=== PATIENT | female | born 1960 | race Caucasian/White ===

== ENCOUNTER 2017-04-20 10:24 | Inpatient (IN) | payer BC ==
[~2017-04-20] VITALS: Ht 154.9 cm; Wt 128.0 kg
[~2017-04-20 10:24] MED LIST: CLIMARA0.1 MG TP; DICYCLOMINE HCL20 MG PO; FLAGYL500 MG PO; FLUOXETINE HCL10 MG PO; FLUOXETINE HCL20 MG PO; NYQUIL D COLD295 ML PO; OMEPRAZOLE20 MG PO; OMEPRAZOLE40 M1 PO; ZOFRAN4 MG PO
[2017-04-20 11:10] LABS: BASE EXCESS -0.3 mEq/L (-3 to +3); BICARBONATE 22.1 mEq/L (22-26); CARBOXY HGB 1.3 % (0-5); COMMENTS - BLOOD GASES NAC+; DEVICE 980 PB; FI02 21 %; MODE SPONT NIV; PCO2 29 mm Hg (35-45); PO2 70 mm Hg (80-100); SITE RR; TOTAL RESP RATE 26 resp/min; pH 7.49 (7.35-7.45)
[2017-04-20 11:11] LABS: CONTINUOUS POS AIRWAY PRESSURE 5 cm H2O; PRES. SUPPORT 10 CM/H2O
[2017-04-20 12:39] LABS: BASOPHIL (%) 0.3 % (0-1); EOSINOPHIL (%) 0.2 % (0-5); HEMATOCRIT 39.6 % (36.0-46.0); HEMOGLOBIN 12.5 G/DL (11.9-15.5); IMMATURE GRANULOCYTE (%) 1.2 % (0.0-0.7); LYMPHOCYTE (%) 8.9 % (15-42); LYMPHOCYTE COUNT 0.6 K/uL (1.0-2.8); MCH 27.4 PG (29.0-34.0); MCHC 31.6 G/DL (30.0-36.0); MCV 86.7 FL (83-99); MONOCYTE (%) 3.5 % (3-12); MONOCYTE COUNT 0.2 K/uL (0-0.8); NEUTROPHIL (%) 85.9 % (45-76); NEUTROPHIL COUNT 5.7 K/uL (1.8-6.4); PLATELET COUNT 277 K/uL (156-360); RBC DIS.WIDTH-CV 14.7 % (11.8-14.6); RED BLOOD COUNT 4.57 M/uL (3.80-5.20); WHITE BLOOD COUNT 6.6 K/uL (4.1-10.2)
[2017-04-20 12:51] LABS: APPEARANCE CLEAR ((CLEAR)); BILIRUBIN NEGATIVE; BLOOD NEGATIVE; COLOR YELLOW ((YELLOW)); GLUCOSE (STRIP) NEGATIVE; KETONES 5; LEUKOCYTES NEGATIVE; NITRITE NEGATIVE; PROTEIN (STRIP) NEGATIVE; SPECIFIC GRAVITY 1.009 (1.000-1.030); UCUL ADDED? NO; UROBILINOGEN 0.2 MG/DL (0.2-1.0)
[2017-04-20 12:52] LABS: CHLORIDE 108 mEq/L (99-109); POTASSIUM 3.2 mEq/L (3.7-5.4); SODIUM 140 mEq/L (136-147)
[2017-04-20 12:54] LABS: GLUCOSE 165 mg/dL (70-99); TOTAL PROTEIN 6.9 g/dL (6.4-8.3)
[2017-04-20 12:56] LABS: TOTAL BILIRUBIN 0.4 mg/dL (0.0-1.0)
[2017-04-20 12:58] LABS: ALKALINE PHOSPHATASE 53 IU/L (3-129); CREATININE 0.9 mg/dL (0.6-1.3); GFR ESTIMATE (CALCULATED) > 59 mL/min/
[2017-04-20 12:59] LABS: AST (GOT) 13 IU/L (2-34); UREA NITROGEN (BUN) 10 mg/dL (9-23)
[2017-04-20 13:00] LABS: DIRECT BILIRUBIN 0.2 mg/dL (0.0-0.3); PTT 27.2 SEC (25-37); TROP-I INTERPRETATION NEGATIVE; TROPONIN-I < 0.01 ng/mL (0.0-0.30)
[2017-04-20 13:01] LABS: ALT (GPT) 17 IU/L (3-49); LIPASE 18 U/L (1.0-51.0)
[2017-04-20] MEDS ORDERED: ZOFRAN8 MG PO (16:06)
[2017-04-20] MEDS ORDERED: PREDNISONE5 MG PO ×3 (16:06)
[2017-04-20] MEDS ORDERED: DESMOPRESSIN A0.1 M1 PO (16:07)
[2017-04-20] MEDS ORDERED: FLORINEF ACETA0.1 MG PO (16:07)
[2017-04-20] MEDS ORDERED: SOLU-CORTE100 MG/22 IV (16:07)
[2017-04-20] MEDS ORDERED: CYANOCOBALAM1000 MCG PO (16:08)
[2017-04-20 19:40] LABS: TROP-I INTERPRETATION NEGATIVE; TROPONIN-I < 0.01 ng/mL (0.0-0.30)
[2017-04-20 21:45] VITALS: BP 148/77
[2017-04-20 23:34] VITALS: BP 119/57
[2017-04-21 01:26] LABS: TROP-I INTERPRETATION NEGATIVE; TROPONIN-I < 0.01 ng/mL (0.0-0.30)
[2017-04-21 03:34] VITALS: BP 136/73
[2017-04-21 07:22] VITALS: BP 141/74
[2017-04-21 07:57] LABS: HEMATOCRIT 34.4 % (36.0-46.0); HEMOGLOBIN 10.8 G/DL (11.9-15.5); MCH 27.3 PG (29.0-34.0); MCHC 31.4 G/DL (30.0-36.0); MCV 86.9 FL (83-99); PLATELET COUNT 258 K/uL (156-360); RBC DIS.WIDTH-CV 14.8 % (11.8-14.6); RBC DIS.WIDTH-SD 47.4 % (39-53); RED BLOOD COUNT 3.96 M/uL (3.80-5.20); WHITE BLOOD COUNT 5.4 K/uL (4.1-10.2)
[2017-04-21 08:21] LABS: CHLORIDE 109 MEQ/L (99-109); CREATININE 0.8 MG/DL (0.6-1.3); GFR ESTIMATE (CALCULATED) > 59 mL/min/; GLUCOSE 145 mg/dL (70-99); SODIUM 144 MEQ/L (136-147); UREA NITROGEN (BUN) 8 mg/dL (9-23)
[2017-04-21 08:27] LABS: POTASSIUM 4.5 MEQ/L (3.7-5.4)
[2017-04-21 12:23] VITALS: BP 130/68
[2017-04-21 14:29] LABS: THYROTROPIN (TSH) 0.32 MIU/L (0.4-5.5)
[2017-04-21 16:09] VITALS: BP 138/72
[2017-04-21 18:55] VITALS: BP 111/54
[2017-04-21 23:25] VITALS: BP 144/73
[2017-04-22 06:54] LABS: HEMATOCRIT 33.6 % (36.0-46.0); HEMOGLOBIN 10.6 G/DL (11.9-15.5); MCH 27.5 PG (29.0-34.0); MCHC 31.5 G/DL (30.0-36.0); PLATELET COUNT 250 K/uL (156-360); RED BLOOD COUNT 3.86 M/uL (3.80-5.20); WHITE BLOOD COUNT 7.4 K/uL (4.1-10.2)
[2017-04-22 07:22] LABS: CHLORIDE 109 MEQ/L (99-109); CREATININE 0.7 MG/DL (0.6-1.3); GFR ESTIMATE (CALCULATED) > 59 mL/min/; GLUCOSE 146 mg/dL (70-99); POTASSIUM 4.3 MEQ/L (3.7-5.4); SODIUM 144 MEQ/L (136-147); UREA NITROGEN (BUN) 8 mg/dL (9-23)
[2017-04-22 08:32] VITALS: BP 147/70
[2017-04-22 15:46] VITALS: BP 131/75
[2017-04-22 19:44] VITALS: BP 135/64
[2017-04-22 23:15] VITALS: BP 119/88
[2017-04-23 03:10] VITALS: BP 145/72
[2017-04-23 11:18] VITALS: BP 163/88
[2017-04-23] MEDS ORDERED: LEVAQUIN750 MG PO (15:00)
[2017-04-23] MEDS ORDERED: PREDNISONE10 MG PO (15:00)
[2017-04-23] MEDS ORDERED: SPIRIVA1 INHALATI IH (15:00)
[2017-04-23] MEDS ORDERED: ADVAIR HFA120 INHALA IH (15:00)
[2017-04-23] MEDS ORDERED: DESMOPRESSIN A0.1 M1 PO (15:00)
[2017-04-23] MEDS ORDERED: VENTOLIN HFA18 GM IH (15:02)
[2017-04-23] MEDS ORDERED: DUONEB 2.5-0.5 M3 ML AEROSOL (15:02)
== END 2017-04-23 16:34 | disposition home or self-care (01) | DRG 871 ==
LOC: EME 10:24 → 2EAST 15:49 → EDOF 15:49 → ENRESERV 15:54 → 2EAST 21:04
PROVIDERS: Emergency Medicine; Internal Medicine; Physician Assistant Medical
DX: A40.3 Sepsis due to Streptococcus pneumoniae (principal); J13 Pneumonia due to Streptococcus pneumoniae; J44.1 Chronic obstructive pulmonary disease with (acute) exacerbation; Z68.43 Body mass index [BMI] 50.0-59.9, adult; E87.3 Alkalosis; E27.8 Other specified disorders of adrenal gland; E87.6 Hypokalemia; E66.9 Obesity, unspecified; R09.02 Hypoxemia; J45.41 Moderate persistent asthma with (acute) exacerbation; J44.0 Chronic obstructive pulmonary disease with (acute) lower respiratory infection; I34.0 Nonrheumatic mitral (valve) insufficiency; E86.0 Dehydration; I27.20 Pulmonary hypertension, unspecified; K58.9 Irritable bowel syndrome, unspecified; R07.2 Precordial pain; K76.89 Other specified diseases of liver; K21.9 Gastro-esophageal reflux disease without esophagitis; E27.40 Unspecified adrenocortical insufficiency; Z90.710 Acquired absence of both cervix and uterus; Z87.891 Personal history of nicotine dependence; Z79.52 Long term (current) use of systemic steroids; Z79.899 Other long term (current) drug therapy; Z82.49 Family history of ischemic heart disease and other diseases of the circulatory system
CPT/HCPCS: 36600; 71045; 71250; 78582; 80048; 80053; 80202; 80400; 81003; 82248; 82803; 83605; 83690; 84439; 84443; 84484; 85025; 85027; 85379; 85610; 85730; 87040; 87070; 87205; 87449; 87502; 87641; 93005; 93306; 94002; 94640; 94640 76; 94799; 99202; 99281; 99285; A9539; A9540; J1100; J1650; J2543; J2920; J3260; J3370; J7030; J7050

== ENCOUNTER 2017-09-05 10:43 | Inpatient (IN) | payer BC, OTHER ==
[~2017-09-05] VITALS: Ht 154.9 cm; Wt 128.3 kg
[~2017-09-05 10:43] MED LIST changes: +ADVAIR HFA120 INHALA IH; +CYANOCOBALAM1000 MCG PO; +DESMOPRESSIN A0.1 M1 PO; +DUONEB 2.5-0.5 M3 ML AEROSOL; +FLORINEF ACETA0.1 MG PO; -FLUOXETINE HCL20 MG PO; +FLUOXETINE HCL40 MG PO; +LEVAQUIN750 MG PO; +PREDNISONE10 MG PO; +PREDNISONE5 MG PO; +SOLU-CORTE100 MG/22 IV; +SPIRIVA1 INHALATI IH; +VENTOLIN HFA18 GM IH; +ZOFRAN8 MG PO
[2017-09-05 11:52] LABS: BASOPHIL (%) 0.8 % (0-1); BASOPHIL COUNT 0.1 K/uL (0-0.1); EOSINOPHIL (%) 1.3 % (0-5); EOSINOPHIL COUNT 0.1 K/uL (0-0.3); HEMOGLOBIN 12.6 G/DL (11.9-15.5); IMMATURE GRANULOCYTE (%) 0.9 % (0.0-0.7); LYMPHOCYTE (%) 24.9 % (15-42); LYMPHOCYTE COUNT 2.5 K/uL (1.0-2.8); MCH 27.6 PG (29.0-34.0); MCHC 32.3 G/DL (30.0-36.0); MCV 85.3 FL (83-99); MONOCYTE (%) 6.9 % (3-12); MONOCYTE COUNT 0.7 K/uL (0-0.8); NEUTROPHIL (%) 65.2 % (45-76); NEUTROPHIL COUNT 6.4 K/uL (1.8-6.4); NRBC (%) 0.2 /100 WBC (0-0); PLATELET COUNT 334 K/uL (156-360); RBC DIS.WIDTH-CV 13.8 % (11.8-14.6); RBC DIS.WIDTH-SD 43.2 % (39-53); RED BLOOD COUNT 4.57 M/uL (3.80-5.20); WHITE BLOOD COUNT 9.8 K/uL (4.1-10.2)
[2017-09-05 12:00] LABS: PTT 26.3 SEC (25-37)
[2017-09-05 12:05] LABS: CHLORIDE 103 mEq/L (99-109); SODIUM 139 mEq/L (136-147)
[2017-09-05 12:06] LABS: GLUCOSE 104 mg/dL (70-99)
[2017-09-05 12:10] LABS: CREATININE 0.8 mg/dL (0.6-1.3); GFR ESTIMATE (CALCULATED) > 59 mL/min/
[2017-09-05 12:11] LABS: UREA NITROGEN (BUN) 10 mg/dL (9-23)
[2017-09-05 12:13] LABS: TROP-I INTERPRETATION NEGATIVE; TROPONIN-I < 0.01 ng/mL (0.0-0.30)
[2017-09-05] MEDS ORDERED: PREDNISONE5 MG PO (15:21)
[2017-09-05] MEDS ORDERED: SPIRIVA18 MCG IH (15:23)
[2017-09-05] MEDS ORDERED: DESMOPRESSIN A0.1 M1 PO (15:23)
[2017-09-05] MEDS ORDERED: VITAMIN D3400 UNIT/5 PO (15:26)
[2017-09-05 15:32] LABS: TOTAL PROTEIN 6.8 g/dL (6.4-8.3)
[2017-09-05 15:34] LABS: TOTAL BILIRUBIN 0.5 mg/dL (0.0-1.0)
[2017-09-05 15:35] LABS: ALKALINE PHOSPHATASE 64 IU/L (3-129)
[2017-09-05 15:38] LABS: ALT (GPT) 18 IU/L (3-49); AST (GOT) 14 IU/L (2-34)
[2017-09-05 16:44] VITALS: BP 127/70
[2017-09-05 19:19] VITALS: BP 127/67
[2017-09-05 22:17] VITALS: BP 134/84
[2017-09-05 23:59] VITALS: BP 121/58
[2017-09-06 03:25] VITALS: BP 116/60
[2017-09-06 05:49] LABS: PTT 60.3 SEC (25-37)
[2017-09-06 09:02] VITALS: BP 138/81
[2017-09-06 09:09] LABS: INTER. NORMALIZED RATIO 1.1
[2017-09-06 12:20] VITALS: BP 116/70
[2017-09-06 16:17] VITALS: BP 104/55
[2017-09-06 19:40] VITALS: BP 114/57
[2017-09-07 00:11] VITALS: BP 124/81
[2017-09-07 03:12] VITALS: BP 124/61
[2017-09-07 08:07] VITALS: BP 126/72
[2017-09-07] MEDS ORDERED: LOVENOX150 MG/1 M SC (10:38)
[2017-09-07] MEDS ORDERED: COUMADIN7.5 MG PO (10:39)
== END 2017-09-07 12:33 | disposition home or self-care (01) | DRG 176 ==
LOC: EME 10:43 → 2EAST 14:39 → EDOF 14:39 → ENRESERV 15:03 → 2EAST 16:40
PROVIDERS: Emergency Medicine; Hospitalist; Internal Medicine Hematology & Oncology
DX: I26.99 Other pulmonary embolism without acute cor pulmonale (principal); E27.40 Unspecified adrenocortical insufficiency; E23.2 Diabetes insipidus; J44.9 Chronic obstructive pulmonary disease, unspecified; K21.9 Gastro-esophageal reflux disease without esophagitis; G43.909 Migraine, unspecified, not intractable, without status migrainosus; E66.01 Morbid (severe) obesity due to excess calories; Z87.891 Personal history of nicotine dependence; Z91.041 Radiographic dye allergy status; Z79.890 Hormone replacement therapy; Z68.43 Body mass index [BMI] 50.0-59.9, adult
CPT/HCPCS: 71275; 80048; 80053; 82948; 84484; 85025; 85379; 85610; 85730; 93005; 93926; 93971; 94640; 94640 76; 99281; 99285; J1200; J1650; J2930; J7030; J7512

== ENCOUNTER 2017-09-25 13:37 | Inpatient (IN) | payer BC, OTHER ==
[~2017-09-25] VITALS: Ht 154.9 cm; Wt 128.4 kg
[~2017-09-25 13:37] MED LIST changes: +COUMADIN7.5 MG PO; +LOVENOX150 MG/1 M SC; +SPIRIVA18 MCG IH; +VITAMIN D3400 UNIT/5 PO
[2017-09-25 14:18] LABS: BASOPHIL (%) 0.9 % (0-1); BASOPHIL COUNT 0.1 K/uL (0-0.1); EOSINOPHIL (%) 1.8 % (0-5); EOSINOPHIL COUNT 0.2 K/uL (0-0.3); HEMATOCRIT 38.2 % (36.0-46.0); HEMOGLOBIN 12.3 G/DL (11.9-15.5); IMMATURE GRANULOCYTE (%) 1.2 % (0.0-0.7); LYMPHOCYTE (%) 22.7 % (15-42); LYMPHOCYTE COUNT 2.1 K/uL (1.0-2.8); MCH 27.2 PG (29.0-34.0); MCHC 32.2 G/DL (30.0-36.0); MCV 84.5 FL (83-99); MONOCYTE (%) 6.9 % (3-12); MONOCYTE COUNT 0.7 K/uL (0-0.8); NEUTROPHIL (%) 66.5 % (45-76); NEUTROPHIL COUNT 6.2 K/uL (1.8-6.4); PLATELET COUNT 372 K/uL (156-360); RBC DIS.WIDTH-CV 14.4 % (11.8-14.6); RBC DIS.WIDTH-SD 44.3 % (39-53); RED BLOOD COUNT 4.52 M/uL (3.80-5.20); WHITE BLOOD COUNT 9.4 K/uL (4.1-10.2)
[2017-09-25 14:23] LABS: INTER. NORMALIZED RATIO 4.3
[2017-09-25 14:26] LABS: PTT 47.5 SEC (25-37)
[2017-09-25 14:30] LABS: CHLORIDE 106 mEq/L (99-109); POTASSIUM 3.7 mEq/L (3.7-5.4); SODIUM 140 mEq/L (136-147)
[2017-09-25 14:41] LABS: GLUCOSE 117 mg/dL (70-99); TOTAL PROTEIN 6.6 g/dL (6.4-8.3)
[2017-09-25 14:43] LABS: TOTAL BILIRUBIN 0.5 mg/dL (0.0-1.0)
[2017-09-25 14:44] LABS: ALKALINE PHOSPHATASE 56 IU/L (3-129)
[2017-09-25 14:45] LABS: CREATININE 0.9 mg/dL (0.6-1.3); GFR ESTIMATE (CALCULATED) > 59 mL/min/
[2017-09-25 14:46] LABS: AST (GOT) 22 IU/L (2-34); UREA NITROGEN (BUN) 9 mg/dL (9-23)
[2017-09-25 14:47] LABS: ALT (GPT) 33 IU/L (3-49)
[2017-09-25] MEDS ORDERED: COUMADIN1 MG PO (17:01)
[2017-09-25] MEDS ORDERED: COUMADIN5 MG PO (17:05)
[2017-09-25 19:16] VITALS: BP 124/62
[2017-09-25 22:35] LABS: HEMATOCRIT 36.6 % (36.0-46.0); HEMOGLOBIN 11.8 G/DL (11.9-15.5); MCV 85.5 FL (83-99)
[2017-09-26] VITALS (7 sets, daily range): BP systolic 102–129; BP diastolic 55–71
[2017-09-26 06:50] LABS: PTT 44.2 SEC (25-37)
[2017-09-26 07:37] LABS: MCV 86.8 FL (83-99)
[2017-09-26 07:39] LABS: CHLORIDE 112 MEQ/L (99-109); CREATININE 0.8 MG/DL (0.6-1.3); GFR ESTIMATE (CALCULATED) > 59 mL/min/; GLUCOSE 113 mg/dL (70-99); UREA NITROGEN (BUN) 6 mg/dL (9-23)
[2017-09-26 07:44] LABS: SODIUM 148 MEQ/L (136-147)
[2017-09-26 08:19] LABS: C DIFF TOXIN NEGATIVE (NEGATIVE)
[2017-09-26 10:17] LABS: INTER. NORMALIZED RATIO 4.2
[2017-09-27 03:16] VITALS: BP 124/75
[2017-09-27 06:12] LABS: HEMATOCRIT 35.9 % (36.0-46.0); MCH 26.7 PG (29.0-34.0); MCHC 30.6 G/DL (30.0-36.0); MCV 87.1 FL (83-99); PLATELET COUNT 334 K/uL (156-360); RBC DIS.WIDTH-CV 14.5 % (11.8-14.6); RBC DIS.WIDTH-SD 46.4 % (39-53); RED BLOOD COUNT 4.12 M/uL (3.80-5.20); WHITE BLOOD COUNT 6.5 K/uL (4.1-10.2)
[2017-09-27 06:37] LABS: CHLORIDE 112 MEQ/L (99-109); CREATININE 0.7 MG/DL (0.6-1.3); GFR ESTIMATE (CALCULATED) > 59 mL/min/; GLUCOSE 97 mg/dL (70-99); POTASSIUM 3.8 MEQ/L (3.7-5.4); SODIUM 145 MEQ/L (136-147); UREA NITROGEN (BUN) 4 mg/dL (9-23)
[2017-09-27 07:10] VITALS: BP 146/65
[2017-09-27 08:51] LABS: INTER. NORMALIZED RATIO 4.1
[2017-09-27 08:55] LABS: PTT 41.9 SEC (25-37)
[2017-09-27 11:11] VITALS: BP 130/66
[2017-09-27 15:45] VITALS: BP 129/65
[2017-09-27 22:39] VITALS: BP 95/55
[2017-09-28 07:20] VITALS: BP 136/69
[2017-09-28 08:53] LABS: INTER. NORMALIZED RATIO 3.1
== END 2017-09-28 14:48 | disposition home or self-care (01) | DRG 378 ==
LOC: EME 13:37 → 5EAST 16:40 → EDOF 16:40 → ENRESERV 17:17 → 5EAST 19:12
PROVIDERS: Emergency Medicine; Internal Medicine; Internal Medicine Gastroenterology; Physician Assistant; Student in an Organized Health Care Education/Training Program
DX: K92.2 Gastrointestinal hemorrhage, unspecified (principal); E23.2 Diabetes insipidus; E27.40 Unspecified adrenocortical insufficiency; K51.90 Ulcerative colitis, unspecified, without complications; Z90.710 Acquired absence of both cervix and uterus; Z90.49 Acquired absence of other specified parts of digestive tract; Z87.01 Personal history of pneumonia (recurrent); Z86.711 Personal history of pulmonary embolism; R79.1 Abnormal coagulation profile; Z79.01 Long term (current) use of anticoagulants; T45.515A Adverse effect of anticoagulants, initial encounter; E66.9 Obesity, unspecified; F39 Unspecified mood [affective] disorder; K76.89 Other specified diseases of liver; K21.9 Gastro-esophageal reflux disease without esophagitis; J43.9 Emphysema, unspecified; G43.909 Migraine, unspecified, not intractable, without status migrainosus; Z68.43 Body mass index [BMI] 50.0-59.9, adult; Z88.5 Allergy status to narcotic agent; Z91.041 Radiographic dye allergy status; Z87.891 Personal history of nicotine dependence; Z79.51 Long term (current) use of inhaled steroids; Z82.49 Family history of ischemic heart disease and other diseases of the circulatory system
CPT/HCPCS: 36415; 74176; 74183; 80048; 80053; 83630; 85014; 85018; 85025; 85025 91; 85027; 85610; 85730; 86850; 86900; 86901; 87493; 87506; 94640; 94640 76; 99202; 99281; 99285; J2405; J7030; J7512